=== PATIENT | male | born 1970 | race Caucasian/White ===

== ENCOUNTER → 2023-06-29 | Outpatient (CLI) | payer BC ==
--- NOTE | 2023-06-29 14:31 | XR ---
EXAMINATION TYPE: XR chest 2V DATE OF EXAM: 06/29/2023 COMPARISON: None INDICATION: Ankle spasm TECHNIQUE: Frontal and lateral views of the chest are obtained. FINDINGS: The heart size is normal. The pulmonary vasculature is normal. The lungs are clear. There is hyperinflation flattening the diaphragms compatible with COPD. IMPRESSION: 1. No acute pulmonary process.
== END | disposition home or self-care (01) ==
LOC: RADXRYALE 13:11
PROVIDERS: ATTEND Internal Medicine
DX: J98.01 Acute bronchospasm (principal)
CPT/HCPCS: 71046